=== PATIENT | male | born 1970 | race Caucasian/White ===

== ENCOUNTER 2021-02-02 23:19 | Inpatient (IN) | payer MEDICARE, OTHER, SELFPAY ==
[2021-02-02 23:03] VITALS: BP 157/88; PULSE 95; RESP 24; TEMP 36.9; O2SAT 87; BMI 33.9
--- NOTE | 2021-02-02 23:04 | XR_ITS ---
PROCEDURE INFORMATION: Exam: XR Chest Exam date and time: 02/02/2021 11:04 PM Age: 50 years old Clinical indication: Shortness of breath; Additional info: SOA TECHNIQUE: Imaging protocol: XR of the chest. Views: 1 view. COMPARISON: No relevant prior studies available. FINDINGS: Lungs: Heterogeneous right basilar opacity, suspicious for pneumonia in appropriate clinical setting. Pleural spaces: Bilateral small pleural effusions. Heart/Mediastinum: Unremarkable cardiomediastinal silhouette. Bones/joints: No acute osseous findings. IMPRESSION: Heterogeneous right basilar opacity, suspicious for pneumonia in appropriate clinical setting. Recommend imaging follow-up until complete resolution as malignancy may have a similar appearance.
[2021-02-02 23:09] LABS: ABG Base Excess 2.6 mmol/L (-2.4-2.3); ABG HCO3 29.2 mmhg (22.0-26.0); ABG Oxygen Saturation 96 % (90-100); ABG PH 7.29 mmol/L (7.35-7.45); ABG PO2 84.2 mmhg (80-100); ABG TCO2 31.1 mmhg (23-27); Allen's Test Acceptable; Oxygen 3LPM %; Source Left Radial
[2021-02-02 23:10] LABS: ABG PCO2 62.3 mmhg (35.0-45.0)
--- NOTE | 2021-02-02 23:26 | ECG_ITS ---
APPROVED REPORT Exam: Resting ECG HR:95 bpm ECG Measurements Heart Rate 95 AXES NJ 126 P 64 QRSd 150 QRS 98 QT 412 T 33 QTc 517 Conclusion Normal sinus rhythm Right bundle branch block Abnormal ECG Electronically signed by : Александр Almonte MD 02/03/2021 09:53:19
--- NOTE | 2021-02-02 23:28 | HMH.EDSOB ---
ED Disposition Clinical Impression: Acute exacerbation of chronic obstructive airways disease, Obesity (BMI 30-39.9), RBBB (right bundle branch block with left anterior fascicular block), Tobacco use, Severe sepsis with acute organ dysfunction Community acquired pneumonia Qualifiers: Laterality: right Lung location: lower lobe of lung Qualified Code(s): J18.9 - Pneumonia, unspecified organism Respiratory failure with hypercapnia Qualifiers: Chronicity: acute Qualified Code(s): J96.02 - Acute respiratory failure with hypercapnia Disposition: Admitted As Inpatient Condition on Discharge: Serious Referrals: Provider,Referral, [Referring] - - Critical Care Critical Care Time: No Attestation: On 02/02/21, the high probability of a clinically significant, sudden or life threatening deterioration of the following system(s) required my full and direct attention, intervention and personal management. The time I documented below is in addition to time spent performing reported procedures but includes the following listed in this critical care notation. Medical Decision Making - Medical Records Medical records reviewed: Yes: I reviewed the patient's medical records. - Prashanth Inquiry Pt receiving controlled substance: No Vital Signs: 02/02/21 23:03 Temperature 98.4 F Temperature Source Oral Pulse Rate [Right] 95 H Respiratory Rate 24 Blood Pressure [Right Arm] 157/88 H Blood Pressure Mean [Right Arm] 111 02 Sat by Pulse Oximetry 87 L Oxygen Delivery Method Room Air - Lab Data Lab results reviewed: Yes: I reviewed the patient's lab results. Lab Results 02/02/21 23:05: Specimen Source Left radial, O2 % 3lpm, ABG pH 7.29 L, ABG pCO2 62.3 H, ABG pO2 84.2, ABG HCO3 29.2 H, ABG Total CO2 31.1 H, ABG O2 Saturation 96, ABG Base Excess 2.6 H, Romero Test Acceptable 02/02/21 23:15: WBC 7.5, RBC 4.86, Hgb 15.2, Hct 44.8, MCV 92.0, MCH 31.2, MCHC 33.8, RDW 16.4, Plt Count 253, MPV 7.7, Neut % (Auto) 69.0, Lymph % (Auto) 13.4, [place] % (Auto) 11.2 H, Eos % (Auto) 5.0, Baso % (Auto) 1.4, Neut # (Auto) 5.2, Lymph # (Auto) 1.0, [place] # (Auto) 0.8, Eos # (Auto) 0.4, Baso # (Auto) 0.1, ESR 19 02/02/21 23:15: Sodium 140, Potassium 3.7, Chloride 100, Carbon Dioxide 36 H, Anion Gap 7.7, BUN 12, Creatinine 1.00, Estimated Creat Clear 139, Estimated GFR 78, Est GFR ( Amer) 95, Glucose 119 H, Calcium 8.3 L, Total Bilirubin 0.4, AST 25, ALT 15, Alkaline Phosphatase 85, Troponin I 0.01, C-Reactive Protein 14.0 H, Total Protein 7.1, Albumin 3.8, Globulin 3.3 H, Albumin/Globulin Ratio 1.2, Amylase 75, Procalcitonin 0.094 02/02/21 23:15: Lactate 1.0 02/02/21 23:15: Lipase 63 02/02/21 23:15: SARS-CoV-2 (PCR) Not detected, Influenza A Untype (PCR) Not detected, Influenza Type B (PCR) Not detected Result diagrams: 02/02/21 23:15 02/02/21 23:15 Orders (Tests/Meds): ED MEDICATIONS Generic Name Dose Route Start Last Admin Trade Name Freq PRN Reason Stop Dose Admin Sodium Chloride 1,000 mls @ 999 mls/hr 02/02/21 23:45 02/02/21 23:57 Sod Chlor 0.9% 1000ml Bag IV 02/03/21 00:45 999 mls/hr .Q1H1M ADELINE Administration Discontinued Medications Generic Name Dose Route Start Last Admin Trade Name Freq PRN Reason Stop Dose Admin Iopamidol 70 ml 02/02/21 23:50 02/02/21 23:50 Iopamidol-370 (76%);100ml Bottle IV 02/02/21 23:51 70 ml ONCE ONE Administration Iopamidol 70 ml 02/03/21 00:35 02/03/21 00:37 Iopamidol-370 (76%);100ml Bottle IV 02/03/21 00:36 70 ml ONCE ONE Administration Methylprednisolone Sodium Succinate 125 mg 02/02/21 23:32 02/02/21 23:56 Methylprednisolone Sod Succ 125mg Vial IV 02/02/21 23:33 125 mg ONCE ONE Administration Ondansetron HCl 4 mg 02/02/21 23:32 02/02/21 23:56 Ondansetron 4mg/2ml Vial IV 02/02/21 23:33 4 mg ONCE ONE Administration Sodium Chloride 10 ml 02/02/21 23:50 02/02/21 23:50 Sodium Chloride 0.9% 10ml Syr (Rad Only) IV 02/02/21 23:51 10 ml
--- NOTE | 2021-02-02 23:31 | CT_ITS ---
PROCEDURE INFORMATION: Exam: CT Abdomen And Pelvis With Contrast Exam date and time: 02/02/2021 11:31 PM Age: 50 years old Clinical indication: Nausea and vomiting; Prior surgery; Additional info: N/v TECHNIQUE: Imaging protocol: Computed tomography of the abdomen and pelvis with contrast. Radiation optimization: All CT scans at this facility use at least one of these dose optimization techniques: automated exposure control; mA and/or kV adjustment per patient size (includes targeted exams where dose is matched to clinical indication); or iterative reconstruction. Contrast material: ISOVUE; Contrast volume: 70 ml; Contrast route: IV; COMPARISON: CR XR CHEST PORTABLE 02/02/2021 11:08 PM FINDINGS: Lungs: Incompletely visualize heterogeneous right basilar opacity may represent pneumonia. Liver: No suspicious mass. Gallbladder and bile ducts: Cholecystectomy. Pancreas: No ductal dilation. No peripancreatic inflammatory changes. Spleen: Unremarkable. Adrenal glands: No mass. Kidneys and ureters: No hydronephrosis. Unremarkable renogram. Stomach and bowel: 1.8 cm area of low attenuation in the pancreaticoduodenal groove. Appendix: Unremarkable appendix. Intraperitoneal space: No free air. Vasculature: Atherosclerotic calcifications. Lymph nodes: See Stomach and bowel finding. Urinary bladder: Diffuse thickening of the urinary bladder wall, nonspecific, cystitis is possible. Reproductive: Unremarkable as visualized. Bones/joints: No suspicious osseous lesion. No acute fracture. Scattered degenerative changes. Soft tissues: No suspicious mass. IMPRESSION: 1. Incompletely visualize heterogeneous right basilar opacity may represent pneumonia. Recommend imaging follow-up until complete resolution. 2. 1.8 cm area of low attenuation in the pancreaticoduodenal groove. This is very nonspecific. These may represent small fluid-filled duodenal diverticulum. Differential diagnosis include pancreatitis or duodenitis or necrotic lymph node. Recommend short-term follow-up with MR. 3. Diffuse thickening of the urinary bladder wall, nonspecific, cystitis is possible. Correlate with UA.
[2021-02-02 23:50] VITALS: BP 161/87; PULSE 94; RESP 24; O2SAT 92
[2021-02-02 23:56] LABS: Coronavirus 19, PCR Not Detected (NotDetected); Influenza A, PCR Not Detected (NotDetected); Influenza B, PCR Not Detected (NotDetected)
[2021-02-02 23:58] LABS: Basophils # 0.1 K/mm3 (0-0.2); Basophils % 1.4 % (0.1-2.0); Eosinophils # 0.4 K/mm3 (0.0-0.4); Hematocrit 44.8 % (42.0-52.0); Hemoglobin 15.2 g/dL (14.1-18.0); Lymphocytes % 13.4 % (10-50); Mean Corpuscular HGB Conc 33.8 g/dL (31.8-35.4); Mean Corpuscular Hemoglobin 31.2 pg (27.0-31.2); Mean Platelet Volume 7.7 fl (7.4-10.4); Monocytes # 0.8 K/mm3 (0.1-1.0); Monocytes % 11.2 % (1.7-9.3); Neutrophils # 5.2 K/mm3 (1.8-7.8); Platelet Count 253 K/mm3 (142-424); Red Blood Count 4.86 M/mm3 (4.60-6.20); Red Cell Distribution Width 16.4 % (11.5-17.5); White Blood Count 7.5 K/mm3 (4.8-10.8)
[2021-02-03] VITALS (15 sets, daily range): BP systolic 138–173; BP diastolic 64–99; PULSE 82–114; RESP 16–29; TEMP 36.1–37.2; O2SAT 93–98; BMI 35.2
[2021-02-03 00:07] LABS: Lipase 63 U/L (23-300)
[2021-02-03 00:08] LABS: Alanine Aminotransferase 15 U/L (12-78); Albumin Level 3.8 g/dl (3.5-5.0); Albumin/Globulin Ratio 1.2 (1.1-1.8); Alkaline Phosphatase 85 U/L (38-126); Aspartate Amino Transferase 25 U/L (17-59); Bilirubin,Total 0.4 mg/dl (0.2-1.3); Chloride 100 mmol/L (98-107); Globulin 3.3 g/dL (1.3-3.2); Potassium 3.7 mmoL/L (3.5-5.1); Sodium 140 mmol/L (136-145); Total Protein,Serum 7.1 g/dl (6.3-8.2)
[2021-02-03 00:11] LABS: Amylase 75 U/L (30-110); Anion Gap 7.7 mEq/L (5-15); Blood Urea Nitrogen 12 mg/dl (9-20); Calcium 8.3 mg/dl (8.4-10.2); Carbon Dioxide 36 mmol/L (22.0-30.0); Creatinine Clearance Estimated 139 mL/min (50-200); Estimated Glomerular Filt Rate 78 ml/min (>60); GFR (African American) 95 ML/MIN (>60); Glucose 119 mg/dl (74-100)
--- NOTE | 2021-02-03 00:15 | PC.NURSE ---
pt was placed on bipap by respiratory. Pt tolerating bipap well. FiO2 41%.
--- NOTE | 2021-02-03 00:18 | CT_ITS ---
PROCEDURE INFORMATION: Exam: CTA Chest With Contrast Exam date and time: 02/03/2021 12:18 AM Age: 50 years old Clinical indication: Shortness of breath; Additional info: SOA, dyspnea TECHNIQUE: Imaging protocol: Computed tomographic angiography of the chest with contrast. 3D rendering (Not supervised by radiologist): MIP and/or 3D reconstructed images were created by the technologist. Radiation optimization: All CT scans at this facility use at least one of these dose optimization techniques: automated exposure control; mA and/or kV adjustment per patient size (includes targeted exams where dose is matched to clinical indication); or iterative reconstruction. Contrast material: 70; Contrast volume: 70 ml; Contrast route: INTRAVENOUS (IV); COMPARISON: CR XR CHEST PORTABLE 02/02/2021 11:08 PM FINDINGS: Pulmonary arteries: The study is technically limited secondary to respiratory motion artifact and/or suboptimal timing of the bolus without definite evidence of major pulmonary embolism. Aorta: No thoracic aortic aneurysm. Lungs: Heterogeneous right basilar opacity in the right lower lobe and right middle lobe, may represent pneumonia in appropriate clinical setting. Evaluation of the lung parenchyma is limited due to motion artifact. Multiple scattered nodular opacities most prominent in the right upper lobe, nonspecific, but probably infectious or inflammatory. Few calcified pulmonary granulomas. Pleural spaces: No pleural effusion. Heart: No pericardial effusion. Lymph nodes: Mild to moderate mediastinal lymphadenopathy. This is indeterminate. Bones/joints: No acute fracture. Soft tissues: At least 2 measuring up to 3.0 cm skin based lesion in the posterior left chest. Other findings: Please refer to separate CT abdomen pelvis report for additional findings. IMPRESSION: 1. Limited study without evidence of major pulmonary embolism. 2. Heterogeneous right basilar opacity in the right lower lobe and right middle lobe, may represent pneumonia in appropriate clinical setting. Recommend imaging follow-up until complete resolution. 3. Multiple scattered nodular opacities most prominent in the right upper lobe, nonspecific, but probably infectious or inflammatory. Recommend imaging follow-up until complete resolution. 4. Mild to moderate mediastinal lymphadenopathy. This is indeterminate. 5. At least 2 measuring up to 3.0 cm skin based lesion in the posterior left chest, recommend clinical correlation.
[2021-02-03 00:23] LABS: Troponin I 0.01 ng/ml (0.00-0.034)
[2021-02-03 00:27] LABS: Procalcitonin 0.094 ng/mL (0.0-2.0)
[2021-02-03 00:36] LABS: Erythrocyte Sedimentation Rate 19 mm/hr (0-20)
--- NOTE | 2021-02-03 02:15 | PC.NURSE ---
paged Dr. Lora.
[2021-02-03 02:36] LABS: Troponin I 0.01 ng/ml (0.00-0.034)
--- NOTE | 2021-02-03 03:11 | PC.NURSE ---
patient up to floor via stretcher @ this time .
[2021-02-03 05:43] LABS: Basophils # 0.1 K/mm3 (0-0.2); Basophils % 1.2 % (0.1-2.0); Eosinophils # 0.1 K/mm3 (0.0-0.4); Eosinophils % 0.9 % (0.1-12.0); Hematocrit 45.8 % (42.0-52.0); Hemoglobin 15.5 g/dL (14.1-18.0); Lymphocytes # 0.7 K/mm3 (0.7-4.5); Lymphocytes % 7.5 % (10-50); Mean Corpuscular HGB Conc 33.9 g/dL (31.8-35.4); Mean Corpuscular Volume 91.5 fl (80-94); Mean Platelet Volume 7.5 fl (7.4-10.4); Monocytes # 0.3 K/mm3 (0.1-1.0); Monocytes % 3.1 % (1.7-9.3); Neutrophils # 7.6 K/mm3 (1.8-7.8); Neutrophils % 87.3 % (37.0-80.0); Platelet Count 246 K/mm3 (142-424); Red Blood Count 5.01 M/mm3 (4.60-6.20); Red Cell Distribution Width 16.3 % (11.5-17.5); White Blood Count 8.7 K/mm3 (4.8-10.8)
[2021-02-03 05:50] LABS: MANUAL DIFFERENTIAL MANUAL DIFFERENTIAL (MANUAL DIFF)
[2021-02-03 06:01] LABS: Anion Gap 8.9 mEq/L (5-15); Blood Urea Nitrogen 10 mg/dl (9-20); Calcium 8.3 mg/dl (8.4-10.2); Carbon Dioxide 35 mmol/L (22.0-30.0); Chloride 102 mmol/L (98-107); Chol/HDL Ratio 3.4 (1-3.5); Cholesterol 125 mg/dl (140-200); Creatinine Clearance Estimated 160 mL/min (50-200); Estimated Glomerular Filt Rate 89 ml/min (>60); GFR (African American) 107 ML/MIN (>60); Glucose 151 mg/dl (74-100); HDL Cholesterol 37 mg/dl (40-60); Magnesium 1.5 mg/dl (1.6-2.3); Potassium 4.9 mmoL/L (3.5-5.1); Sodium 141 mmol/L (136-145); Triglycerides 111 mg/dl (30-150); VLDL Cholesterol 22 mg/dL (0-40)
[2021-02-03 06:07] LABS: Troponin I 0.01 ng/ml (0.00-0.034)
[2021-02-03 06:12] LABS: Direct LDL Cholesterol 68.19 mg/dL (100-129); Eosinophils % 1 % (0-3); Lymphocytes % 13 % (10-50); Neutrophils % 85 % (42-76); Platelet Estimate Normal; RBC Morphology Normal; Total Cells Counted 100
--- NOTE | 2021-02-03 07:00 | XR_ITS ---
PROCEDURE INFORMATION: Exam: XR Chest Exam date and time: 02/03/2021 7:00 AM Age: 50 years old Clinical indication: Shortness of breath; Additional info: SOB TECHNIQUE: Imaging protocol: XR of the chest. Views: 1 view. COMPARISON: CR XR CHEST PORTABLE 02/02/2021 11:08 PM FINDINGS: Limitations: Radiographic technique - mild. Tubes, catheters and devices: Leads overlying chest. Lungs: Mild patchy opacities lung bases. Pleural spaces: Small RIGHT pleural effusion. No pneumothorax. Heart/Mediastinum: Mild cardiomegaly. Bones/joints: No displaced fracture. Soft tissues: Unremarkable. IMPRESSION: Probable bibasilar pneumonia. Followup to resolution to exclude underlying pathology.
--- NOTE | 2021-02-03 07:05 | PC.NURSE ---
Dr. Spicer s/w Dr. Lora.
--- NOTE | 2021-02-03 07:26 | HMH.PHAVTE ---
[facility] Pharmacy VTE Monitoring - Patient Demographics Admission date: 02/03/21 Report Date: 02/03/21 Time: 07:26 Allergies/Adverse Reactions: Patient Allergies No Known Allergies Allergy (Verified 02/02/21 23:04) Height: 1.83 m Weight: 118.1 kg Patient Problems: Current Active Problems Acute exacerbation of chronic obstructive airways disease (Acute) Community acquired pneumonia (Acute) Obesity (BMI 30-39.9) (Acute) RBBB (right bundle branch block with left anterior fascicular block) (Acute) Tobacco use (Acute) Respiratory failure with hypercapnia (Acute) Severe sepsis with acute organ dysfunction (Acute) - VTE Risk Labs: VTE Related Lab Results Hgb 15.5 g/dL (14.1-18.0) 02/03/21 05:30 Hct 45.8 % (42.0-52.0) 02/03/21 05:30 Plt Count 246 K/mm3 (142-424) 02/03/21 05:30 BUN 10 mg/dl (9-20) 02/03/21 05:30 Creatinine 0.90 mg/dl (0.66-1.25) 02/03/21 05:30 Estimated Creat Clear 160 mL/min (50-200) 02/03/21 05:30 Clinical Trial Participant: No - Prophylaxis VTE Prophylaxis Ordered?: Yes Types of VTE Prophylaxis: TEDS Knee High
--- NOTE | 2021-02-03 08:53 | HMH.ACPN2 ---
Internal Medicine - PN: Subj *Date: 02/03/21 *Time: 08:53 Interval history: 50-year-old white male with pneumonia admitted through the emergency room. Has been a patient in the past with Dr. Moreno'harjit but has not been seen by their office since 2012. He smokes 3 packs of cigarettes per day. He states that his respiratory status has been declining over the past several months. He thinks he may have some heart issues as well but he left Dr. Moreno at the time they were starting evaluation of that. He states he does have some chest pains. Obviously he is short of breath now and coughing. He was acidotic on admission. Exam Vital signs and Labs for Last 24 Hours: Temp Pulse Resp BP Pulse Ox 99.0 F 95 H 22 150/76 H 94 L 02/03/21 08:00 02/03/21 08:00 02/03/21 08:00 02/03/21 08:00 02/03/21 08:00 Laboratory Results - last 24 hr 02/02/21 23:05: Specimen Source Left radial, O2 % 3lpm, ABG pH 7.29 L, ABG pCO2 62.3 H, ABG pO2 84.2, ABG HCO3 29.2 H, ABG Total CO2 31.1 H, ABG O2 Saturation 96, ABG Base Excess 2.6 H, Romero Test Acceptable 02/02/21 23:15: WBC 7.5, RBC 4.86, Hgb 15.2, Hct 44.8, MCV 92.0, MCH 31.2, MCHC 33.8, RDW 16.4, Plt Count 253, MPV 7.7, Neut % (Auto) 69.0, Lymph % (Auto) 13.4, [place] % (Auto) 11.2 H, Eos % (Auto) 5.0, Baso % (Auto) 1.4, Neut # (Auto) 5.2, Lymph # (Auto) 1.0, [place] # (Auto) 0.8, Eos # (Auto) 0.4, Baso # (Auto) 0.1, ESR 19 02/02/21 23:15: Sodium 140, Potassium 3.7, Chloride 100, Carbon Dioxide 36 H, Anion Gap 7.7, BUN 12, Creatinine 1.00, Estimated Creat Clear 139, Estimated GFR 78, Est GFR ( Amer) 95, Glucose 119 H, Calcium 8.3 L, Total Bilirubin 0.4, AST 25, ALT 15, Alkaline Phosphatase 85, Troponin I 0.01, C-Reactive Protein 14.0 H, Total Protein 7.1, Albumin 3.8, Globulin 3.3 H, Albumin/Globulin Ratio 1.2, Amylase 75, Procalcitonin 0.094 02/02/21 23:15: Lactate 1.0 02/02/21 23:15: Lipase 63 02/02/21 23:15: SARS-CoV-2 (PCR) Not detected, Influenza A Untype (PCR) Not detected, Influenza Type B (PCR) Not detected 02/03/21 01:59: Troponin I 0.01 02/03/21 05:30: Troponin I 0.01 02/03/21 05:30: WBC 8.7, RBC 5.01, Hgb 15.5, Hct 45.8, MCV 91.5, MCH 31.0, MCHC 33.9, RDW 16.3, Plt Count 246, MPV 7.5, Neut % (Auto) 87.3 H, Lymph % (Auto) 7.5 L, [place] % (Auto) 3.1, Eos % (Auto) 0.9, Baso % (Auto) 1.2, Neut # (Auto) 7.6, Lymph # (Auto) 0.7, [place] # (Auto) 0.3, Eos # (Auto) 0.1, Baso # (Auto) 0.1, Total Counted 100, Neutrophils % (Manual) 85 H, Lymphocytes % (Manual) 13, Eosinophils % (Manual) 1, Basophils % (Manual) 1.0, Platelet Estimate Normal, RBC Morphology Normal 02/03/21 05:30: Sodium 141, Potassium 4.9 D, Chloride 102, Carbon Dioxide 35 H, Anion Gap 8.9, BUN 10, Creatinine 0.90, Estimated Creat Clear 160, Estimated GFR 89, Est GFR ( Amer) 107, Glucose 151 H D, Calcium 8.3 L, Magnesium 1.5 L, Triglycerides 111, Cholesterol 125 L, LDL Cholesterol Direct 68.19 L, VLDL Cholesterol 22, HDL Cholesterol 37 L, Cholesterol/HDL Ratio 3.4 I & O for Last 24 hours: Intake & Output 11/02/01/21 02/02/21 02/03/21 11:59 11:59 11:59 11:59 Weight 260 lb 5.855 oz - Constitutional no acute distress, mild distress - *Routine HEENT Exam Head: Present: normocephalic Eye: Present: EOMI, PERRL ENT: Present: mucous membranes moist - *Routine Neck Exam Present: supple. Absent: carotid bruit, lymphadenopathy - *Routine Respiratory Exam Present: decreased breath sounds, rales, rhonchi, wheezes. Absent: CTA bilaterally Comments: Findings are more prominent on the right than on the left. - *Routine Abdominal Exam Present: soft, normoactive bowel sounds, obese. Absent: tenderness - *Routine Extremities Exam Present: edema (2+ edema). Absent: cyanosis, clubbing - *Routine Skin Exam Present: warm. Absent: rash - *Routine Neurological Exam Present: alert, oriented X3 Assessment and Plan (1) Acute exacerbation of chronic obstructive airways disease Status: Acute Category: Medical Code(s
--- NOTE | 2021-02-03 09:32 | HMH.HP ---
*Admission Date: 02/03/21 *Chief complaint: Shortness of breath *History of present illness: Mr. Franklin is a 50yo white male with history of anxiety and depression who reports he started smoking at the age of 13 and is currently smoking 3 ppd. He is a poor historian. He reported to Dr. Epps some plans for cardiac workup when he was a patient of Dr. Almonte in 2013 which were not completed. He reports he began to experience some shortness of breath over a year ago at the beginning of COVID but denies having had COVID-19 infection and did not seek medical care at that time. He reports he was taking buspirone for his anxiety and depression as recently as a month ago. He is not able to recall the pharmacy where he was getting the prescription filled, however, he believes a provider from [facility] in [place], [place], had been prescribing the buspar for him since he was a resident at that facility while he was homeless . He has recently moved in with his parents in [place], [place], after losing his apartment in [place] because he was unable to pay his rent. He denies any drug use and reports very infrequent alcohol use. He is unemployed. He presented to the [facility] ER overnight due to increased shortness of breath and chest tightness which had increased over the past 2-3 days. He was diagnosed with pneumonia, started on IV Rocephin and Zithromax, and admitted for further evaluation and treatment. [facility] History I have reviewed the patient's past medical history: Yes (poor historian) Medical History: Reports:: Anxiety, Depression *Have you ever received a pneumonia vaccine?: No *Have you received a flu vaccine this season?: No - *Social History Last grade of school completed: High school graduate Smoking Status: Current every day smoker Tobacco Type: cigarettes # Packs/Day (cigarettes): 3 #Yrs smoked (if former smoker): 37 Alcohol Intake: never Substance Use Type: denies use *Occupational Status:: unemployed Household Members: family *Travel in the last 8 weeks: None Comment: moved back in with his parents recently after losing his apartment due to inability to pay rent Family Hx:: Cancer Review of Systems - Constitutional Denies body ache(s), Denies fever(s) - Eyes Denies change in vision - ENT Denies nasal congestion, Denies sore throat - *Cardiovascular Reports chest pain, Reports shortness of breath, Reports shortness of breath with activity, Denies generalized swelling, Denies leg swelling - *Respiratory Reports chest congestion, Reports cough, Reports shortness of breath, Reports shortness of breath with activity, Reports excessive phlegm production, Reports pain on inspiration, Reports pain with cough - *Gastrointestinal Denies abdominal pain, Denies change in bowel habits, Denies loose stools, Denies nausea, Denies vomiting - *Genitourinary Denies difficulty urinating - *Neurologic Reports weakness, Denies headache(s), Denies seizure-like activity - Psychiatric Reports anxiety, Reports depression - Hematologic/Lymphatic Denies enlarged lymph nodes Meds Home Medications Medication Instructions Recorded Confirmed Type No Known Home Medications 02/03/21 02/03/21 History Allergies Allergy/AdvReac Type Severity Reaction Status Date / Time No Known Allergies Allergy Verified 02/02/21 23:04 Exam Vital signs and Labs for Last 24 Hours: Temp Pulse Resp BP Pulse Ox 99.0 F 95 H 22 150/76 H 94 L 02/03/21 08:00 02/03/21 08:00 02/03/21 08:00 02/03/21 08:00 02/03/21 08:00 Laboratory Results - last 24 hr 02/02/21 23:05: Specimen Source Left radial, O2 % 3lpm, ABG pH 7.29 L, ABG pCO2 62.3 H, ABG pO2 84.2, ABG HCO3 29.2 H, ABG Total CO2 31.1 H, ABG O2 Saturation 96, ABG Base Excess 2.6 H, Romero Test Acceptable 02/02/21 23:15: WBC 7.5, RBC 4.86, Hgb 15.2, Hct 44.8, MCV 92.0, MCH 31.2, MCHC 33.8, RDW 16.4, Plt Count 253, MPV 7.7, Neut % (Auto) 69.0, Lymph % (Auto) 13.4, [place] % (Auto) 11.2 H, Eos %
--- NOTE | 2021-02-03 17:15 | PC.NURSE ---
Patient is NSR to Sinus tach on the monitor. Patient is on 6L NC. Patient is up with standby/assist times 1. Patient Alert and oriented times 4. Echo completed. Bed in lowest position and phone and call light in reach. Will continue to monitor.
[2021-02-04] VITALS (11 sets, daily range): BP systolic 142–198; BP diastolic 70–99; PULSE 74–108; RESP 18–24; TEMP 36.5–36.8; O2SAT 93–96; BMI 34.5
--- NOTE | 2021-02-04 09:06 | HMH.ACPN2 ---
Internal Medicine - PN: Subj *Date: 02/04/21 *Time: 09:07 Interval history: I made it through the night. He is concerned about where he will go at disposition. His parents are elderly and infirm. Exam Vital signs and Labs for Last 24 Hours: Temp Pulse Resp BP Pulse Ox 98.1 F 88 18 142/78 H 93 L 02/04/21 03:42 02/04/21 05:18 02/04/21 03:42 02/04/21 03:42 02/04/21 05:17 I & O for Last 24 hours: Intake & Output 02/01/21 02/02/21 02/03/21 02/04/21 11:59 11:59 11:59 11:59 Intake Total 120 / 120 720 / 720 Output Total 300 / 300 1500 / 1500 Balance -180 / -180 -780 / -780 Weight 260 lb 5.855 oz 255 lb 2.327 oz Microbiology Reports for the Last 24 Hours: Microbiology 02/03/21 09:20 Sputum - Expectorated Sputum Gram Stain - Final 02/03/21 09:20 Sputum - Expectorated Sputum Sputum Culture - Preliminary - Constitutional no acute distress - *Routine HEENT Exam Head: Present: normocephalic Eye: Present: EOMI, PERRL ENT: Present: mucous membranes moist - *Routine Neck Exam Present: supple. Absent: lymphadenopathy - *Routine Respiratory Exam Present: rales, rhonchi - *Routine Abdominal Exam Present: soft, normoactive bowel sounds, obese. Absent: tenderness - *Routine Extremities Exam Absent: cyanosis, clubbing, edema (minimal) - *Routine Skin Exam Present: warm. Absent: rash Comments: large sebaceous cyst of the left upper/mid back on the left - *Routine Neurological Exam Present: alert, oriented X3 Assessment and Plan (1) Acute exacerbation of chronic obstructive airways disease Status: Acute Category: Medical Code(s): J44.1 - Chronic obstructive pulmonary disease with (acute) exacerbation (2) Community acquired pneumonia Status: Acute Qualifiers: Laterality: right Lung location: lower lobe of lung Qualified Code(s): J18.9 - Pneumonia, unspecified organism Category: Medical Code(s): J18.9 - Pneumonia, unspecified organism (3) Obesity (BMI 30-39.9) Status: Acute Category: Medical Code(s): E66.9 - Obesity, unspecified (4) RBBB (right bundle branch block with left anterior fascicular block) Status: Acute Category: Medical Code(s): I45.2 - Bifascicular block (5) Respiratory failure with hypercapnia Status: Acute Qualifiers: Chronicity: acute Qualified Code(s): J96.02 - Acute respiratory failure with hypercapnia Category: Medical Code(s): J96.92 - Respiratory failure, unspecified with hypercapnia (6) Severe sepsis with acute organ dysfunction Status: Acute Category: Medical Code(s): A41.9 - Sepsis, unspecified organism; R65.20 - Severe sepsis without septic shock (7) Tobacco use Status: Acute Category: Social Hx Code(s): Z72.0 - Tobacco use - Assessment and plan all Dx Assessment and Plan for all problems:: continue present regimen. Chest physiotherapy. Case management consult.
[2021-02-04 09:21] LABS: Basophils # 0.1 K/mm3 (0-0.2); Basophils % 1.2 % (0.1-2.0); Eosinophils # 0.1 K/mm3 (0.0-0.4); Eosinophils % 0.8 % (0.1-12.0); Hematocrit 42.8 % (42.0-52.0); Hemoglobin 14.6 g/dL (14.1-18.0); Lymphocytes # 0.8 K/mm3 (0.7-4.5); Lymphocytes % 6.7 % (10-50); Mean Corpuscular HGB Conc 34.1 g/dL (31.8-35.4); Mean Corpuscular Hemoglobin 31.1 pg (27.0-31.2); Mean Corpuscular Volume 91.3 fl (80-94); Mean Platelet Volume 8.4 fl (7.4-10.4); Monocytes # 0.8 K/mm3 (0.1-1.0); Monocytes % 6.4 % (1.7-9.3); Neutrophils # 10.3 K/mm3 (1.8-7.8); Neutrophils % 84.9 % (37.0-80.0); Platelet Count 281 K/mm3 (142-424); Red Blood Count 4.69 M/mm3 (4.60-6.20); Red Cell Distribution Width 16.4 % (11.5-17.5); White Blood Count 12.1 K/mm3 (4.8-10.8)
[2021-02-04 09:25] LABS: Chloride 99 mmol/L (98-107); Potassium 4.3 mmoL/L (3.5-5.1); Sodium 140 mmol/L (136-145)
[2021-02-04 09:28] LABS: Anion Gap 11.3 mEq/L (5-15); Blood Urea Nitrogen 14 mg/dl (9-20); Calcium 8.2 mg/dl (8.4-10.2); Carbon Dioxide 34 mmol/L (22.0-30.0); Creatinine Clearance Estimated 177 mL/min (50-200); Estimated Glomerular Filt Rate 102 ml/min (>60); GFR (African American) 123 ML/MIN (>60); Glucose 180 mg/dl (74-100)
--- NOTE | 2021-02-04 20:18 | PC.NURSE ---
notified MD Epps bone tender about pt's BP trending up over the last several hours and current increased bp's as charted, pt not in pain and stated do take something for blood pressure, but don't know what , stated would look over chart and order from there
[2021-02-05] VITALS (8 sets, daily range): BP systolic 148–183; BP diastolic 75–93; PULSE 77–110; RESP 16–20; TEMP 35.9–37.3; O2SAT 94–97; BMI 34.5
--- NOTE | 2021-02-05 05:20 | PC.NURSE ---
Addendum entered by Margareth Mcqueen RN 02/05/21 06:52: removed IV in left arm, left arm was the affected extremity Original Note: pt c/o pain in right arm with antibiotic going at rate of 25mL/hr, stopped azithromycin and stopped IVF while attempting to start new IV, but pt refused to have new IV started, removed IV in right arm and noted arm swollen, pt has good pulses and cap refill with no discoloration, notified MD Epps, MD Epps stated to place Kpad on affected extremity, when attempted to place Kpad on pt pt refused treatment and stated don't bother, I'm leaving, my mom is coming to get me and I'm going to [facility] in [place] , notified MD Epps that pt is wanting to leave [place]; notified boiler house inspector and is coming to speak with pt
--- NOTE | 2021-02-05 06:25 | PC.NURSE ---
pt's mother notified RN that pt has daily medications in black pouch, staff were unaware that pt had medications with him, went into room and found medications in closet, wrote down list and dosages, will give to MD Epps when rounds so MD can put them in mar, pt stated will wait to leave until talk to doctor , pt allowed powerhouse mechanic apprentice to place kpad on affected extremity, will send pharmacy requisition for tramadol 50mg PO per telephone order from MD Epps, placed home medications in locked training and development manager pt's room
--- NOTE | 2021-02-05 06:49 | PC.NURSE ---
daily home medications from pt's personal bag 1. metoprolol 100mg am 2. Risperidone 3mg PO twice daily 3. amlodipine besylate 10mg am 4. atorvastatin 20mg at bedtime 5. divalproex sodium 500mg twice daily 6. aspirin 81mg chew tab am
--- NOTE | 2021-02-05 06:54 | PC.NURSE ---
after pharmacy req and order went through, went to go ask pt if still wanted pain medication and pt asleep and snoring, will alert day RN that pt has order for one time dose of tramadol if pt needs it when wakes up
--- NOTE | 2021-02-05 13:24 | XR_ITS ---
PROCEDURE INFORMATION: Exam: XR Chest Exam date and time: 02/05/2021 1:24 PM Age: 50 years old Clinical indication: Shortness of breath; Additional info: Pneumonia TECHNIQUE: Imaging protocol: XR of the chest. Views: 2 views. COMPARISON: CR XR CHEST PORTABLE 02/03/2021 6:05 AM FINDINGS: Lungs: Mild basilar airspace disease on the right. Subpulmonic effusion. Pleural spaces: See Lungs finding. Heart/Mediastinum: Unremarkable. No cardiomegaly. Bones/joints: Unremarkable. IMPRESSION: Mild basilar airspace disease on the right. Subpulmonic effusion.
--- NOTE | 2021-02-05 13:27 | HMH.ACPN2 ---
Internal Medicine - PN: Subj *Date: 02/05/21 *Time: 13:27 Interval history: He was already complained about discomfort from his IV when it subsequently infiltrated causing a lot of discomfort in his left arm. He has refused to have the IV restarted up to this point. He also considered signing out AMA but remains hospitalized at [facility]. I spoke to him about the implications of IV antibiotic treatment. I told him that we would reassess his chest x-ray and I need to see his blood work. His Gram stain showed gram-positive cocci in pairs and chains. Cultures have revealed nothing at this point. White blood cell count was elevated yesterday. He is receiving steroids. Exam Vital signs and Labs for Last 24 Hours: Temp Pulse Resp BP Pulse Ox 98.2 F 82 16 174/93 H 94 L 02/05/21 08:00 02/05/21 08:00 02/05/21 08:00 02/05/21 08:00 02/05/21 08:00 I & O for Last 24 hours: Intake & Output 02/03/21 02/04/21 02/05/21 02/06/21 11:59 11:59 11:59 11:59 Intake Total 120 / 120 1080 / 1080 600 / 600 Output Total 300 / 300 1700 / 1700 2200 / 2200 Balance -180 / -180 -620 / -620 -1600 / -1600 Weight 260 lb 5.855 oz 255 lb 2.327 oz 255 lb Microbiology Reports for the Last 24 Hours: Microbiology 02/03/21 09:20 Sputum - Expectorated Sputum Gram Stain - Final 02/03/21 09:20 Sputum - Expectorated Sputum Sputum Culture - Preliminary 02/02/21 23:15 Blood Blood Culture - Preliminary NO GROWTH AFTER 48 HOURS 02/02/21 23:15 Blood Blood Culture - Preliminary NO GROWTH AFTER 48 HOURS - *Routine HEENT Exam Head: Present: normocephalic Eye: Present: EOMI, PERRL ENT: Present: mucous membranes moist - *Routine Neck Exam Present: supple. Absent: JVD, lymphadenopathy - *Routine Respiratory Exam Present: decreased breath sounds, rhonchi (But lungs do sound clearer today.) - *Routine Cardiovascular Exam Present: RRR - *Routine Abdominal Exam Present: soft, normoactive bowel sounds. Absent: tenderness - *Routine Extremities Exam Absent: cyanosis, clubbing, edema - *Routine Skin Exam Present: warm. Absent: rash - *Routine Neurological Exam Present: alert, oriented X3 Assessment and Plan (1) Acute exacerbation of chronic obstructive airways disease Status: Acute Category: Medical Code(s): J44.1 - Chronic obstructive pulmonary disease with (acute) exacerbation (2) Community acquired pneumonia Status: Acute Qualifiers: Laterality: right Lung location: lower lobe of lung Qualified Code(s): J18.9 - Pneumonia, unspecified organism Category: Medical Code(s): J18.9 - Pneumonia, unspecified organism (3) Obesity (BMI 30-39.9) Status: Acute Category: Medical Code(s): E66.9 - Obesity, unspecified (4) RBBB (right bundle branch block with left anterior fascicular block) Status: Acute Category: Medical Code(s): I45.2 - Bifascicular block (5) Respiratory failure with hypercapnia Status: Acute Qualifiers: Chronicity: acute Qualified Code(s): J96.02 - Acute respiratory failure with hypercapnia Category: Medical Code(s): J96.92 - Respiratory failure, unspecified with hypercapnia (6) Severe sepsis with acute organ dysfunction Status: Acute Category: Medical Code(s): A41.9 - Sepsis, unspecified organism; R65.20 - Severe sepsis without septic shock (7) Tobacco use Status: Acute Category: Social Hx Code(s): Z72.0 - Tobacco use - Assessment and plan all Dx Assessment and Plan for all problems:: Chest x-ray. Repeat blood chemistries and CBC. I will start a saline lock. Cefdinir 300 mg p.o. twice daily until I know more from today's studies. Possible discharge tomorrow.
[2021-02-05 13:55] LABS: Basophils # 0.1 K/mm3 (0-0.2); Basophils % 0.4 % (0.1-2.0); Eosinophils # 0.1 K/mm3 (0.0-0.4); Eosinophils % 0.6 % (0.1-12.0); Hematocrit 45.6 % (42.0-52.0); Hemoglobin 15.2 g/dL (14.1-18.0); Lymphocytes # 1.1 K/mm3 (0.7-4.5); Lymphocytes % 7.7 % (10-50); Mean Corpuscular HGB Conc 33.4 g/dL (31.8-35.4); Mean Corpuscular Hemoglobin 30.5 pg (27.0-31.2); Mean Corpuscular Volume 91.4 fl (80-94); Monocytes # 0.7 K/mm3 (0.1-1.0); Monocytes % 4.6 % (1.7-9.3); Neutrophils # 12.5 K/mm3 (1.8-7.8); Neutrophils % 86.8 % (37.0-80.0); Platelet Count 301 K/mm3 (142-424); Red Blood Count 4.99 M/mm3 (4.60-6.20); Red Cell Distribution Width 16.3 % (11.5-17.5); White Blood Count 14.4 K/mm3 (4.8-10.8)
[2021-02-05 13:57] LABS: Chloride 97 mmol/L (98-107); Potassium 3.8 mmoL/L (3.5-5.1); Sodium 139 mmol/L (136-145)
[2021-02-05 14:00] LABS: Blood Urea Nitrogen 16 mg/dl (9-20); Creatinine Clearance Estimated 177 mL/min (50-200); Estimated Glomerular Filt Rate 102 ml/min (>60); GFR (African American) 123 ML/MIN (>60)
[2021-02-05 14:01] LABS: Anion Gap 9.8 mEq/L (5-15); Calcium 8.6 mg/dl (8.4-10.2); Carbon Dioxide 36 mmol/L (22.0-30.0); Glucose 217 mg/dl (74-100)
[2021-02-05 14:02] LABS: MANUAL DIFFERENTIAL MANUAL DIFFERENTIAL (MANUAL DIFF)
[2021-02-05 18:13] LABS: Lymphocytes % 14 % (10-50); Monocytes % 4 % (2-9); Neutrophils % 72 % (42-76); Platelet Estimate Normal; RBC Morphology Normal; Total Cells Counted 100
--- NOTE | 2021-02-05 23:46 | ECG_ITS ---
APPROVED REPORT Exam: Resting ECG HR:75 bpm ECG Measurements Heart Rate 75 AXES TN 144 P 50 QRSd 144 QRS 74 QT 422 T 41 QTc 471 Conclusion Normal sinus rhythm Right bundle branch block Abnormal ECG Electronically signed by : Александр Almonte MD 02/07/2021 12:18:29
[2021-02-06] VITALS (9 sets, daily range): BP systolic 138–157; BP diastolic 80–100; PULSE 70–88; RESP 16–22; TEMP 36.6–37.1; O2SAT 92–97; BMI 34.5
--- NOTE | 2021-02-06 00:03 | PC.NURSE ---
Patient states that he feels heart is about to pop . Upon assessment of patient he is in no distress, vital signs are WNL, EKG was performed and read by the ED physician as No ACUTE changes .
--- NOTE | 2021-02-06 02:48 | PC.NURSE ---
Patient has been guarded and suspicious in behavior. He has rambled off some bizarre phrases and repeated them several times one of those is the world uses me as a cesspool . Patient had asked what the ER doctor had said about his EKG and when told that there was no acute changes, patient became upset with answer and patient states your doctor is illiterate . Patient believes he is dying.
--- NOTE | 2021-02-06 08:50 | HMH.ACPN2 ---
Internal Medicine - PN: Subj *Date: 02/06/21 *Time: 08:50 Interval history: Patient states he continues to wheeze and have a productive cough. He is able to eat without problems. He does feel full this morning after drinking prune juice too quickly. Bowels have moved. Dates he cannot walk but only a few steps due to his shortness of breath. We discussed smoking cessation. He feels that smoking loosens his secretions and he is able to produce them more readily with this. He is not ready for smoking cessation. He normally smokes about 3 packs of cigarettes per day at home. He does not want a patch. Patient states he will need a wheelchair and oxygen upon returning to home. He does have a care management consult. Exam Vital signs and Labs for Last 24 Hours: Temp Pulse Resp BP Pulse Ox 98.2 F 88 22 157/90 H 92 L 02/06/21 08:00 02/06/21 08:00 02/06/21 08:00 02/06/21 08:00 02/06/21 08:00 Laboratory Results - last 24 hr 02/05/21 13:34: WBC 14.4 H, RBC 4.99, Hgb 15.2, Hct 45.6, MCV 91.4, MCH 30.5, MCHC 33.4, RDW 16.3, Plt Count 301, MPV 8.0, Neut % (Auto) 86.8 H, Lymph % (Auto) 7.7 L, Haskell % (Auto) 4.6, Eos % (Auto) 0.6, Baso % (Auto) 0.4, Neut # (Auto) 12.5 H, Lymph # (Auto) 1.1, Haskell # (Auto) 0.7, Eos # (Auto) 0.1, Baso # (Auto) 0.1, Total Counted 100, Neutrophils % (Manual) 72, Band Neutrophils % 10.0 H, Lymphocytes % (Manual) 14, Monocytes % (Manual) 4, Platelet Estimate Normal, RBC Morphology Normal 02/05/21 13:34: Sodium 139, Potassium 3.8, Chloride 97 L, Carbon Dioxide 36 H, Anion Gap 9.8, BUN 16, Creatinine 0.80, Estimated Creat Clear 177, Estimated GFR 102, Est GFR ( Amer) 123, Glucose 217 H, Calcium 8.6 I & O for Last 24 hours: Intake & Output 02/03/21 02/04/21 02/05/21 02/06/21 11:59 11:59 11:59 11:59 Intake Total 120 / 120 1080 / 1080 600 / 600 720 / 720 Output Total 300 / 300 1700 / 1700 2200 / 2200 2345 / 2345 Balance -180 / -180 -620 / -620 -1600 / -1600 -1625 / -1625 Weight 260 lb 5.855 oz 255 lb 2.327 oz 255 lb 255 lb Microbiology Reports for the Last 24 Hours: Microbiology 02/03/21 09:20 Sputum - Expectorated Sputum Gram Stain - Final 02/03/21 09:20 Sputum - Expectorated Sputum Sputum Culture - Preliminary - Constitutional no acute distress Comments: Sitting on the bedside after eating his breakfast. He appears comfortable. - *Routine Respiratory Exam Present: rhonchi, wheezes, crackles Comments: Very noisy chest with crackles bilaterally rhonchi bilaterally and inspiratory and expiratory wheezing bilaterally. Frequent productive coughing with deep inspiration - *Routine Cardiovascular Exam Present: RRR - *Routine Abdominal Exam Present: soft, normoactive bowel sounds, obese. Absent: tenderness - *Routine Extremities Exam Present: edema (Minimal). Absent: calf tenderness - *Routine Neurological Exam Present: alert, oriented X3 Conversant Assessment and Plan (1) Acute exacerbation of chronic obstructive airways disease Status: Acute Category: Medical Code(s): J44.1 - Chronic obstructive pulmonary disease with (acute) exacerbation (2) Community acquired pneumonia Status: Acute Qualifiers: Laterality: right Lung location: lower lobe of lung Qualified Code(s): J18.9 - Pneumonia, unspecified organism Category: Medical Code(s): J18.9 - Pneumonia, unspecified organism (3) Obesity (BMI 30-39.9) Status: Acute Category: Medical Code(s): E66.9 - Obesity, unspecified (4) RBBB (right bundle branch block with left anterior fascicular block) Status: Acute Category: Medical Code(s): I45.2 - Bifascicular block (5) Respiratory failure with hypercapnia Status: Acute Qualifiers: Chronicity: acute Qualified Code(s): J96.02 - Acute respiratory failure with hypercapnia Category: Medical Code(s): J96.92 - Respiratory failure, unspecified with hypercapnia (6) Severe sepsis with acute organ dysfunctio
--- NOTE | 2021-02-06 09:32 | SW/DCPLANNER ---
Addendum entered by Bailey Roberts 02/07/21 10:28: The plan is for this patient to discharge home today. Patient does not meet requirements to have home O2 but Dr Epps has ordered a nebulizer machine for this patient. [facility] has stated they have everything they need for the order. Patient has stated that he will stop by [facility] to roll picker nebulizer machine. Original Note: I spoke with this patient this AM regarding discharge plans. Patient stated that his plan is to return home with his parents once medically stable for discharge. Patient stated that he does have a new O2 requirement and may possible need O2 at time of discharge. I will follow up with O2 sats. Patient expressed an interest for a wheel chair at discharge then stated that he has an electric wheelchair that his friend will take him to roll picker in [place]. I will continue to follow up with this patient until medically stable for discharge.
--- NOTE | 2021-02-06 13:13 | HMH.PULMCON ---
*Admission Date: 02/03/21 *Reason for consult:: Acute hypoxic respiratory failure *History of present illness: Mr. Franklin is a 50-year-old male current smoker greater than [id number] smoking history, carries a diagnosis of COPD, not using any inhalers at baseline presented hospital with worsening respiratory distress and wheezing cough and productive phlegm for the last 3 days not improving on admission patient found to be in respiratory distress and admitted for further management. [facility] History Medical History: Reports:: Anxiety, Depression *Have you ever received a pneumonia vaccine?: No *Have you received a flu vaccine this season?: No - *Social History Last grade of school completed: High school graduate Smoking Status: Current every day smoker Tobacco Type: cigarettes # Packs/Day (cigarettes): 3 #Yrs smoked (if former smoker): 37 Alcohol Intake: never Substance Use Type: denies use *Occupational Status:: unemployed Household Members: family *Travel in the last 8 weeks: None - Psychiatric History Pschychiatric History:: Reports:: Anxiety, Depression Family Hx:: Cancer ROS - Cons Reports anorexia, Reports body ache(s) - ENT Denies bleeding gums - Card Reports shortness of breath, Reports shortness of breath with activity - Resp Respiratory: Reports cough, Reports dyspnea, Reports dyspnea on exertion, Reports excessive phlegm production, Denies pain on inspiration, Denies pain with cough, Reports cough with sputum production, Denies pain with breathing - GI Gastrointestingal: Denies: abdominal pain - Psych Denies thoughts of hurting/killing others, Denies thoughts of hurting/killing yourself Meds Home Medications Medication Instructions Recorded Confirmed Type Amlodipine Besylate [Amlodipine 10 mg PO DAILY 02/05/21 02/05/21 History 10mg Tab] Aspirin [Aspirin 81mg chewable 81 mg PO DAILY 02/05/21 02/05/21 History tab] Atorvastatin Calcium [Lipitor 20mg 20 mg PO HS 02/05/21 02/05/21 History Tab] Buspirone HCl [Buspirone 7.5mg 7.5 mg PO QID 02/05/21 02/05/21 History tablets] Chlorthalidone [Chlorthalidone 12.5 mg PO DAILY 02/05/21 02/05/21 History 25mg tablet] Divalproex Sodium [Depakote] 500 mg PO BID 02/05/21 02/05/21 History Metoprolol Tartrate [Lopressor 50 mg PO BID 02/05/21 02/05/21 History 50mg tablet] Omeprazole [Omeprazole 20mg 20 mg PO DAILY 02/05/21 02/05/21 History Capsule] risperiDONE [Risperidone] 3 mg PO BID 02/05/21 02/05/21 History Allergies Allergy/AdvReac Type Severity Reaction Status Date / Time No Known Allergies Allergy Verified 02/02/21 23:04 Exam - Constitutional Constitutional:: Present: no acute distress, comfortable - HENMT Exam HENMT: Present: normocephalic, atraumatic - Eye Exam Eyes:: Present: normal appearance both eyes and related structures - Neck Exam Neck:: Present: normal visual inspection - Respiratory Exam Respiratory:: Present: able to speak in complete sentences, no respiratory distress, wheezing - Cardiovascular Exam Cardiac:: Present: S1, S2 - GI Exam GI:: Present: soft - Skin Exam Skin: Present: warm, no rash - Neurological Exam Neurological: Present: alert, awake, normal cognition - Extremities Exam Extremities: Present: no cyanosis, no clubbing, edema Internal Medicine - CN: Reslt - Labs CBC & Chem 7: 02/05/21 13:34 02/05/21 13:34 Labs: Short CBC 02/05/21 Range/Units 13:34 WBC 14.4 H (4.8-10.8) K/mm3 Hgb 15.2 (14.1-18.0) g/dL Hct 45.6 (42.0-52.0) % Plt Count 301 (142-424) K/mm3 BMP 02/05/21 13:34 Sodium 139 Potassium 3.8 Chloride 97 L Carbon Dioxide 36 H BUN 16 Creatinine 0.80 Glucose 217 H Calcium 8.6 - ABG Interpretation ABG results: 02/02/21 23:05 ABG pH 7.29 L ABG pCO2 62.3 H ABG pO2 84.2 ABG HCO3 29.2 H ABG Total CO2 31.1 H ABG O2 Saturation 96 ABG Base Excess 2.6 H Assessment
--- NOTE | 2021-02-06 16:41 | PC.NURSE ---
Patient is NSR on the monitor and on 2L NC. Patient is up with standby assist. Alert and oriented times 4. Plan of care, keep a few more days for treatment, pulmonology following patient's care. Bed in lowest position and phone and call light in reach.
[2021-02-07] VITALS (7 sets, daily range): BP systolic 124–162; BP diastolic 77–112; PULSE 60–91; RESP 20–22; TEMP 36.3–36.7; O2SAT 90–97; BMI 34.5
--- NOTE | 2021-02-07 09:05 | HMH.ACPN2 ---
Internal Medicine - PN: Subj *Date: 02/07/21 *Time: 09:05 Interval history: Patient feels he is doing a little bit better today. He states he slept well last night. He reports that since being on the street is exhausted and sleeps most of the time. He is eating without difficulty. He continues with a periodic productive cough. He remains on oxygen at 1 L/min. Exam Vital signs and Labs for Last 24 Hours: Temp Pulse Resp BP Pulse Ox 97.4 F L 85 20 162/112 H 95 02/07/21 04:00 02/07/21 06:10 02/07/21 04:00 02/07/21 04:00 02/07/21 06:10 I & O for Last 24 hours: Intake & Output 02/04/21 02/05/21 02/06/21 02/07/21 11:59 11:59 11:59 11:59 Intake Total 1080 / 1080 600 / 600 720 / 720 360 / 360 Output Total 1700 / 1700 2200 / 2200 2645 / 2645 400 / 400 Balance -620 / -620 -1600 / -1600 -1925 / -1925 -40 / -40 Weight 255 lb 2.327 oz 255 lb 255 lb 254 lb 15.892 oz Microbiology Reports for the Last 24 Hours: Microbiology 02/03/21 09:20 Sputum - Expectorated Sputum Gram Stain - Final 02/03/21 09:20 Sputum - Expectorated Sputum Sputum Culture - Preliminary - Constitutional no acute distress Comments: Awakened for assessment. - *Routine Respiratory Exam Present: rhonchi (Scattered rhonchi throughout but less noisy), wheezes (Less wheezing today.) - *Routine Cardiovascular Exam Present: RRR - *Routine Abdominal Exam Present: soft, normoactive bowel sounds. Absent: tenderness - *Routine Extremities Exam Absent: edema, calf tenderness - *Routine Neurological Exam Present: alert, oriented X3 Assessment and Plan (1) Acute exacerbation of chronic obstructive airways disease Status: Acute Category: Medical Code(s): J44.1 - Chronic obstructive pulmonary disease with (acute) exacerbation (2) Community acquired pneumonia Status: Acute Qualifiers: Laterality: right Lung location: lower lobe of lung Qualified Code(s): J18.9 - Pneumonia, unspecified organism Category: Medical Code(s): J18.9 - Pneumonia, unspecified organism (3) Obesity (BMI 30-39.9) Status: Acute Category: Medical Code(s): E66.9 - Obesity, unspecified (4) RBBB (right bundle branch block with left anterior fascicular block) Status: Acute Category: Medical Code(s): I45.2 - Bifascicular block (5) Respiratory failure with hypercapnia Status: Acute Qualifiers: Chronicity: acute Qualified Code(s): J96.02 - Acute respiratory failure with hypercapnia Category: Medical Code(s): J96.92 - Respiratory failure, unspecified with hypercapnia (6) Severe sepsis with acute organ dysfunction Status: Acute Category: Medical Code(s): A41.9 - Sepsis, unspecified organism; R65.20 - Severe sepsis without septic shock (7) Tobacco use Status: Acute Category: Social Hx Code(s): Z72.0 - Tobacco use - Assessment and plan all Dx Assessment and Plan for all problems:: Patient is ready for discharge today. Will most likely need home oxygen.
--- NOTE | 2021-02-07 09:22 | HMH.PULMPN ---
Internal Medicine - PN: Subj *Date: 02/07/21 *Time: 11:02 Interval history: No acute respiratory events overnight. Patient continued to improve, weaned to room air. Denies any new complaints. Exam - Constitutional Constitutional:: Present: no acute distress, comfortable - HENMT Exam HENMT: Present: normocephalic, atraumatic - Eye Exam Eyes:: Present: normal appearance both eyes and related structures - Neck Exam Neck:: Present: normal visual inspection - Respiratory Exam Respiratory:: Present: lungs clear, normal respiratory effort. Absent: respiratory distress, accessory muscle use - Cardiovascular Exam Cardiac:: Present: S1, S2 - GI Exam GI:: Present: soft - Skin Exam Skin: Present: warm, no rash - Neurological Exam Neurological: Present: alert, awake, normal cognition - Extremities Exam Extremities: Present: no cyanosis, no clubbing, no edema Assessment and Plan (1) Acute exacerbation of chronic obstructive airways disease Status: Acute Category: Medical Code(s): J44.1 - Chronic obstructive pulmonary disease with (acute) exacerbation (2) Community acquired pneumonia Status: Acute Qualifiers: Laterality: right Lung location: lower lobe of lung Qualified Code(s): J18.9 - Pneumonia, unspecified organism Category: Medical Code(s): J18.9 - Pneumonia, unspecified organism (3) Obesity (BMI 30-39.9) Status: Acute Category: Medical Code(s): E66.9 - Obesity, unspecified (4) RBBB (right bundle branch block with left anterior fascicular block) Status: Acute Category: Medical Code(s): I45.2 - Bifascicular block (5) Respiratory failure with hypercapnia Status: Acute Qualifiers: Chronicity: acute Qualified Code(s): J96.02 - Acute respiratory failure with hypercapnia Category: Medical Code(s): J96.92 - Respiratory failure, unspecified with hypercapnia (6) Severe sepsis with acute organ dysfunction Status: Acute Category: Medical Code(s): A41.9 - Sepsis, unspecified organism; R65.20 - Severe sepsis without septic shock (7) Tobacco use Status: Acute Category: Social Hx Code(s): Z72.0 - Tobacco use - Assessment and plan all Dx Assessment and Plan for all problems:: #Acute hypoxic respiratory failure: #Community-acquired pneumonia 50-year-old male current smoker greater than [id number] smoking history. Not using any inhalers at baseline. Present with worsening respiratory distress. CTA performed, no evidence of pulmonary embolism, significant motion artifact, showed bilateral tree-in-bud opacities along with prominent right lower lobe along with minimal left lower lobe bronchiectasis noted. Multiple nodular opacities also noted mostly in the right upper lobe. COVID-19 and flu PCR negative. Mild leukocytosis. Afebrile. Patient was initiated on cefdinir on admission along with nebulization therapy. No prior PFTs or imaging available for review. Patient respiratory status continued to improve, eventually weaned to room air this morning. He was planned to be discharged today. Etiology of this patient's respiratory likely combination of COPD exacerbation/pneumonia. Plan: -Patient weaned to 1 L nasal cannula with saturations maintained at 93% and above. We will continue to wean as tolerated. -Continue DuoNebs every 6 hours scheduled, patient can be discharged on LABA LAMA inhaler therapy. -Continue cefdinir oral to complete a total of 5-day course. Sputum for few gram-positive cocci in pairs and chains. Blood culture no growth 48 hours. -Prednisone 40 mg dailyx5 days. Patient receiving prednisone 10 mg currently #Thank you for involving pulmonary in this patient care. We will follow the patient in pulmonary clinic in 6 weeks with a full PFT and 6-minute walk testing.
--- NOTE | 2021-02-07 11:26 | PC.NURSE ---
Patient ready for discharge to home
--- NOTE | 2021-02-11 10:32 | HMH.DCSUM ---
General - General Admission date:: 02/03/21 Discharge date: 02/07/21 HPI HPI: Mr. Franklin is a 50yo white male with history of anxiety and depression who reports he started smoking at the age of 13 and is currently smoking 3 ppd. He is a poor historian. He reported to Dr. Epps some plans for cardiac workup when he was a patient of Dr. Almonte in 2013 which were not completed. He reports he began to experience some shortness of breath over a year ago at the beginning of COVID but denies having had COVID-19 infection and did not seek medical care at that time. He reports he was taking buspirone for his anxiety and depression as recently as a month ago. He is not able to recall the pharmacy where he was getting the prescription filled, however, he believes a provider from [facility] in [place], [place], had been prescribing the buspar for him since he was a resident at that facility while he was homeless . He has recently moved in with his parents in [place], [place], after losing his apartment in [place] because he was unable to pay his rent. He denies any drug use and reports very infrequent alcohol use. He is unemployed. He presented to the [facility] ER overnight due to increased shortness of breath and chest tightness which had increased over the past 2-3 days. He was diagnosed with pneumonia, started on IV Rocephin and Zithromax, and admitted for further evaluation and treatment. Hospital Course Hospital Course: Patient had a chest x-ray showing heterogenous right basilar opacity suspicious for pneumonia. He had a chest CTA which was limited but did not show evidence of major pulmonary embolism. It did show the right basilar opacity in the right lower lobe and right middle lobe possibly representing a pneumonia. There were multiple scattered nodular opacities in the right upper lobe and mild to moderate mediastinal lymphadenopathy. He also had a CT of the abdomen and pelvis which showed an area of low-attenuation in the pancreaticoduodenal groove and diffuse thickening of the urinary bladder wall. He was admitted and started on antibiotics. An echo was ordered. It showed an EF of 60 to 65%. He was started on chest physiotherapy and case management was consulted about disposition as he had been homeless and then moved in with his elderly parents. He had a repeat chest x-ray on 02/05/2021 which showed mild basilar airspace disease on the right and a subpulmonic effusion. Dr. Epps discussed the chest x-ray with Dr. Parada as he was concerned about a round appearing demarcation in the right base. Dr. Parada did not feel this was a developing abscess. The patient's IV infiltrated which caused a lot of discomfort in his left arm. He refused to have an IV restarted and considered signing out AMA but remained hospitalized. His blood culture showed no growth. He was started on oral cefdinir. He continued to wheeze and have a productive cough. He was only able to walk a few steps due to shortness of breath. It was felt he would need oxygen upon discharge and care management was consulted for this as well. He planned to go to his parents home when discharged. He was seen in consultation by pulmonology who recommended duo nebs and continuation of the oral cefdinir. He also recommended discharge on a LABA LAMA inhaler therapy. He initiated him on prednisone 40 mg a day. By 02/07/2021, he was feeling a little bit better and remained on 1 L of nasal oxygen. He was stable for discharge and will need to follow-up with pulmonology in 6 weeks as well as with Dr. Epps. Of note, his sputum grew yeast. Objective Vital signs: Temp Pulse Resp BP Pulse Ox 97.5 F L 91 H 22 124/77 90 L 02/07/21 08:00 02/07/21 08:00 02/07/21 08:00 02/07/21 08:00 02/07/21 10:15 Narrative: - Constitutional no acute distress, disheveled - *Routine HEENT Exam Head: Present: normocephalic, atraumatic Eye: Present: PERRL, normal accommodation
== END 2021-02-07 11:15 | disposition home or self-care (01) | DRG 871 ==
LOC: ER 02-03 02:20 → 2ND 02-03 02:37
PROVIDERS: Admitting Provider Internal Medicine Adolescent Medicine; Emergency Provider Emergency Medicine; Visit Provider Family Medicine
DX: A41.9 Sepsis, unspecified organism (principal); J18.9 Pneumonia, unspecified organism; J96.02 Acute respiratory failure with hypercapnia; J44.0 Chronic obstructive pulmonary disease with (acute) lower respiratory infection; Z20.822 Contact with and (suspected) exposure to COVID-19; J44.1 Chronic obstructive pulmonary disease with (acute) exacerbation; R65.20 Severe sepsis without septic shock; E66.9 Obesity, unspecified; Z68.34 Body mass index [BMI] 34.0-34.9, adult; F17.210 Nicotine dependence, cigarettes, uncomplicated; F41.9 Anxiety disorder, unspecified; F32.A Depression, unspecified; Z71.6 Tobacco abuse counseling
CPT/HCPCS: 36415; 71045; 71046; 71275; 74177; 80048; 80053; 80061; 82150; 82803; 83605; 83690; 83735; 84145; 84484; 85007; 85025; 85651; 86140; 87040; 87070; 87205; 93005; 93306; 94640; 94761; 96365; 96375; 99284; C9803; J0456; J2405; Q9967; U0003; U0005

== ENCOUNTER 2021-02-23 03:54 | Emergency (ER) | payer MEDICARE, OTHER, SELFPAY ==
[2021-02-23 03:52] VITALS: BP 170/101; PULSE 86; RESP 22; TEMP 36.7; O2SAT 90; BMI 42.3
--- NOTE | 2021-02-23 03:52 | ECG_ITS ---
APPROVED REPORT Exam: Resting ECG HR:89 bpm ECG Measurements Heart Rate 89 AXES AR 132 P 56 QRSd 146 QRS 111 QT 404 T 35 QTc 491 Conclusion Normal sinus rhythm Right bundle branch block Abnormal ECG Electronically signed by : Александр Almonte MD 02/25/2021 08:47:48
--- NOTE | 2021-02-23 04:06 | XR_ITS ---
PROCEDURE INFORMATION: Exam: XR Chest Exam date and time: 02/23/2021 4:06 AM Age: 50 years old Clinical indication: Shortness of breath; Patient HX: SOA. Smoker TECHNIQUE: Imaging protocol: XR of the chest. Views: 2 views. COMPARISON: CR XR CHEST 2V 02/05/2021 2:56 PM FINDINGS: Lungs: Right lung base airspace disease is present. Pleural spaces: Small right-sided pleural effusion is unchanged. Heart/Mediastinum: Unremarkable. No cardiomegaly. Bones/joints: Unremarkable. IMPRESSION: Stable right lung base airspace disease and pleural effusion.
[2021-02-23 04:30] VITALS: BP 156/97; PULSE 85; O2SAT 92
[2021-02-23 04:42] LABS: Basophils # 0.1 K/mm3 (0-0.2); Basophils % 0.5 % (0.1-2.0); Eosinophils # 0.3 K/mm3 (0.0-0.4); Eosinophils % 2.6 % (0.1-12.0); Hemoglobin 16.2 g/dL (14.1-18.0); Lymphocytes % 19.2 % (10-50); Mean Corpuscular HGB Conc 31.8 g/dL (31.8-35.4); Mean Corpuscular Hemoglobin 31.1 pg (27.0-31.2); Mean Corpuscular Volume 97.7 fl (80-94); Mean Platelet Volume 7.3 fl (7.4-10.4); Monocytes # 0.6 K/mm3 (0.1-1.0); Monocytes % 5.8 % (1.7-9.3); Neutrophils # 7.6 K/mm3 (1.8-7.8); Neutrophils % 71.9 % (37.0-80.0); Platelet Count 228 K/mm3 (142-424); Red Blood Count 5.22 M/mm3 (4.60-6.20); Red Cell Distribution Width 16.8 % (11.5-17.5); White Blood Count 10.5 K/mm3 (4.8-10.8)
[2021-02-23 04:45] LABS: Alanine Aminotransferase 26 U/L (12-78); Albumin Level 4.2 g/dl (3.5-5.0); Alkaline Phosphatase 87 U/L (38-126); Aspartate Amino Transferase 30 U/L (17-59); Bilirubin,Direct 0.2 mg/dl (0.0-0.4); Bilirubin,Indirect 0.2 mg/dL (0.0-0.9); Bilirubin,Total 0.4 mg/dl (0.2-1.3); Bilirubin,Unconjugated 0.2 mg/dL (0.0-1.1); Blood Urea Nitrogen 12 mg/dl (9-20); Calcium 8.6 mg/dl (8.4-10.2); Carbon Dioxide 37 mmol/L (22.0-30.0); Chloride 103 mmol/L (98-107); Creatinine Clearance Estimated 81 mL/min (50-200); Estimated Glomerular Filt Rate 78 ml/min (>60); GFR (African American) 95 ML/MIN (>60); Glucose 114 mg/dl (74-100); Sodium 141 mmol/L (136-145); Total Protein,Serum 7.4 g/dl (6.3-8.2)
--- NOTE | 2021-02-23 04:47 | HMH.EDSOB ---
ED Disposition Clinical Impression: Acute exacerbation of chronic obstructive airways disease, RBBB (right bundle branch block with left anterior fascicular block), Tobacco use Disposition: Home, Self-Care Condition on Discharge: Good Instructions: DI for Chronic Obstructive Pulmonary Disease Additional Instructions: see pcp for follow up Prescriptions: predniSONE [Prednisone 20mg Tab] 20 mg PO BID #10 tab Transmission Status: Pending to [facility] Referrals: Александр Almonte MD [Staff Physician] - - Critical Care Critical Care Time: No Attestation: On 02/23/21, the high probability of a clinically significant, sudden or life threatening deterioration of the following system(s) required my full and direct attention, intervention and personal management. The time I documented below is in addition to time spent performing reported procedures but includes the following listed in this critical care notation. Medical Decision Making - Medical Records Medical records reviewed: Yes: I reviewed the patient's medical records. - Prashanth Inquiry Pt receiving controlled substance: No Vital Signs: 02/23/21 03:52 Temperature 98.0 F Temperature Source Oral Pulse Rate [Right Radial] 86 Respiratory Rate 22 Blood Pressure [Right Arm] 170/101 H Blood Pressure Mean [Right Arm] 124 Blood Pressure Source [Right Arm] Automatic Cuff Blood Pressure Position [Right Arm] Sitting 02 Sat by Pulse Oximetry 90 L Oxygen Delivery Method Room Air - Lab Data Lab results reviewed: Yes: I reviewed the patient's lab results. Lab Results 02/23/21 04:29: WBC 10.5, RBC 5.22, Hgb 16.2, Hct 51.0, MCV 97.7 H, MCH 31.1, MCHC 31.8, RDW 16.8, Plt Count 228, MPV 7.3 L, Neut % (Auto) 71.9, Lymph % (Auto) 19.2, Mclennan % (Auto) 5.8, Eos % (Auto) 2.6, Baso % (Auto) 0.5, Neut # (Auto) 7.6, Lymph # (Auto) 2.0, Mclennan # (Auto) 0.6, Eos # (Auto) 0.3, Baso # (Auto) 0.1, ESR 2 02/23/21 04:29: Sodium 141, Potassium 4.0, Chloride 103, Carbon Dioxide 37 H, Anion Gap 5.0, BUN 12, Creatinine 1.00, Estimated Creat Clear 81, Estimated GFR 78, Est GFR ( Amer) 95, Glucose 114 H, Calcium 8.6, Total Bilirubin 0.4, Direct Bilirubin 0.2, Conjugated Bilirubin 0.0, Indirect Bilirubin 0.2, Unconjugated Bilirubin 0.2, AST 30, ALT 26, Alkaline Phosphatase 87, Troponin I 0.01, C-Reactive Protein 3.4, NT-Pro-B Natriuret Pep 93.3, Total Protein 7.4, Albumin 4.2, Procalcitonin 0.045 Result diagrams: 02/23/21 04:29 02/23/21 04:29 Orders (Tests/Meds): ED MEDICATIONS Discontinued Medications Generic Name Dose Route Start Last Admin Trade Name Freq PRN Reason Stop Dose Admin Albuterol/Ipratropium 1 puff 02/23/21 04:55 02/23/21 05:14 Combivent 20mcg/100mcg Respimat Inhaler 02/23/21 04:56 1 puff ONCE ONE Administration Albuterol/Ipratropium 3 ml 02/23/21 05:05 02/23/21 05:14 Ipratropium/Albuterol 3 Ml Neb IH 02/23/21 05:06 3 ml ONCE ONE Administration ORDERS Category Date Time Status Troponin I Q3H Lab 02/23/21 07:15 Ordered Troponin I Q3H Lab 02/23/21 10:15 Ordered - Radiology Data #1 Image(s): Chest Image Reviewed: Yes I have reviewed radiologist's interpretation Preliminary Findings: Abnormal (stable ) - ECG Data Tracing #1 Normal Sinus Rhythm: Yes Ischemic changes: non-specific ST-T wave changes Conduction abnormalities present: RBBB Medical Decision Narrative: has copd and chronic tob use with stable exam and labs - discussed need for follow up and tob cessation Resp/SOB HPI - General Chief Complaint: Shortness of Breath/Dyspnea Stated Complaint: SOA Time Seen by Provider: 02/23/21 04:15 Mode of Arrival: EMS Source of Information: Patient, EMS, Medical Record Limitations: No Limitations Description of Symptoms (Recalled from ER Triage Doc. by RN): Pt reports waking up around 2am with liquid pressure around my heart . Pt says he is unable to lay flat d/t soa. EMS reports pt was very a
[2021-02-23 05:00] VITALS: BP 154/87; PULSE 78; O2SAT 91
[2021-02-23 05:02] LABS: C-Reactive Protein 3.4 mg/L (0-4)
[2021-02-23 05:11] LABS: Erythrocyte Sedimentation Rate 2 mm/hr (0-20)
[2021-02-23 05:15] LABS: NT Pro Brain Natriuretic Pep. 93.3 pg/mL (0-125); Troponin I 0.01 ng/ml (0.00-0.034)
[2021-02-23 05:19] LABS: Procalcitonin 0.045 ng/mL (0.0-2.0)
[2021-02-23 05:30] VITALS: BP 149/88; PULSE 81; O2SAT 90
[2021-02-23 06:12] VITALS: BP 150/91; PULSE 80; RESP 18; TEMP 36.7; O2SAT 92
--- NOTE | 2021-02-23 06:14 | PC.NURSE ---
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 No answer at this time, will attempt again.
--- NOTE | 2021-02-23 07:33 | PC.NURSE ---
got a hold of pt's sister for a ride
== END 2021-02-23 09:21 | disposition home or self-care (01) ==
PROVIDERS: Emergency Provider Emergency Medicine; PCP Internal Medicine Adolescent Medicine
DX: J44.1 Chronic obstructive pulmonary disease with (acute) exacerbation (principal); I45.2 Bifascicular block; F17.210 Nicotine dependence, cigarettes, uncomplicated; F41.8 Other specified anxiety disorders
CPT/HCPCS: 71046; 80048; 80076; 83880; 84145; 84484; 85025; 85651; 86140; 93005; 99283

== ENCOUNTER → 2021-03-29 08:58 | Outpatient (CLI) | payer MEDICARE, MEDICAID, SELFPAY ==
[2021-03-29 14:12] LABS: Basophils # 0.1 K/mm3 (0-0.2); Eosinophils # 0.3 K/mm3 (0.0-0.4); Eosinophils % 2.6 % (0.1-12.0); Hemoglobin 16.7 g/dL (14.1-18.0); Lymphocytes # 1.7 K/mm3 (0.7-4.5); Lymphocytes % 17.1 % (10-50); Mean Corpuscular HGB Conc 32.7 g/dL (31.8-35.4); Mean Corpuscular Hemoglobin 31.5 pg (27.0-31.2); Mean Corpuscular Volume 96.4 fl (80-94); Mean Platelet Volume 8.4 fl (7.4-10.4); Monocytes # 0.6 K/mm3 (0.1-1.0); Monocytes % 6.1 % (1.7-9.3); Neutrophils # 7.1 K/mm3 (1.8-7.8); Neutrophils % 73.3 % (37.0-80.0); Platelet Count 318 K/mm3 (142-424); Red Blood Count 5.29 M/mm3 (4.60-6.20); Red Cell Distribution Width 15.3 % (11.5-17.5); White Blood Count 9.7 K/mm3 (4.8-10.8)
[2021-03-29 14:25] LABS: Alanine Aminotransferase 18 U/L (12-78); Albumin/Globulin Ratio 1.4 (1.1-1.8); Alkaline Phosphatase 95 U/L (38-126); Anion Gap 11.4 mEq/L (5-15); Aspartate Amino Transferase 30 U/L (17-59); Bilirubin,Total 0.4 mg/dl (0.2-1.3); Blood Urea Nitrogen 10 mg/dl (9-20); Calcium 8.8 mg/dl (8.4-10.2); Carbon Dioxide 28 mmol/L (22.0-30.0); Chloride 104 mmol/L (98-107); Estimated Glomerular Filt Rate 89 ml/min (>60); GFR (African American) 107 ML/MIN (>60); Globulin 2.8 g/dL (1.3-3.2); Glucose 100 mg/dl (74-100); Potassium 4.4 mmoL/L (3.5-5.1); Sodium 139 mmol/L (136-145); Total Protein,Serum 6.8 g/dl (6.3-8.2)
[2021-03-29 14:53] LABS: Thyroid Stimulating Hormone 2.43 uIU/mL (0.465-4.68)
[2021-03-29 14:54] LABS: Hemoglobin A1C 5.4 % (4.0-6.0)
== END ==
PROVIDERS: Visit Provider Internal Medicine Adolescent Medicine
DX: R06.00 Dyspnea, unspecified (principal); I10 Essential (primary) hypertension; R53.82 Chronic fatigue, unspecified; Z79.899 Other long term (current) drug therapy
CPT/HCPCS: 36415; 80053; 83036; 84443; 85025

== ENCOUNTER → 2021-04-07 12:37 | Outpatient (CLI) | payer MEDICARE, MEDICAID, SELFPAY ==
--- NOTE | 2021-04-07 12:46 | CA_ITS ---
APPROVED REPORT EXAM: Comprehensive 2D, Doppler, and color-flow Echocardiogram Hygiene Coordinator: Radha Scott CRT Ht: 5 ft 10 in Wt: 270lbs BSA: 2.37 BP: 170/101 mmHg Indications: COPD, Shortness of Breath 2D Dimensions LVOT 2.03 cm (M/F) 1.5-2.5 LA Volume 38.70 mL LA Volume Index 16.30 mL/m2 (M/F) 16-34 M-Mode Dimensions RVDd 3.30 cm (0.9-2.6) LA Diam 4.26 cm (1.9-4.0) LVDd 4.29 cm (3.5-5.7) Ao Diam 4.54 cm (2.0-3.7) LVDs 2.67 cm (3.5-5.7) IVSd 1.94 cm (0.6-1.1) PWd 1.46 cm (0.6-1.1) EF (Teich) 68.20% FS 37.80% EDV (Teich) 82.60 mL TAPSE 1.60 (<1.7) ESV (Teich) 26.30 mL LV Diastology E Decel Time 450.00 (160-240 msec) E/A Ratio 1.01 MED E' 5.70 (< 7 cm/sec) MED A' 11.00 cm/s E'/MED E' Ratio 21.88 (>14) LAT E' 6.10 (<10 cm/sec) LAT A' 8.80 cm/s E/LAT E' Ratio 20.44 (>14) Aortic Valve AO Peak GR. 9.10 mmHg Mitral Valve MV E Max Tamir. 125.00 (40-130 cm/s) MV A Velocity 123.00 (40-130 cm/s) E/A Ratio 1.01 MV Decel. Time 450.00 (160-240 ms) MV PHT 132.00 ms Pulmonary Valve PV Peak Velocity 110.00 (50-150 cm/s) Tricuspid Valve TR P. Velocity 115.00 cm/s RAP Estimate 10.00 mmHg RVSP 15.30 mmHg Left Ventricle Left atrium is mildly enlarged, left ventricle is normal size, mild concentric left ventricular hypertrophy, visually estimated ejection fraction 55% with no obvious regional wall motion abnormality, grade 1 diastolic dysfunction seen with tissue Doppler evidence of raise left atrial pressure. Right Ventricle Right atrium and right ventricle are mildly enlarged with normal contractility. Aortic Valve Aortic valve is minimally thickened and fibrosed, there is no aortic stenosis or aortic insufficiency. Mitral Valve Mitral valve is grossly normal, there is mild mitral regurgitation. Tricuspid Valve Tricuspid valve grossly normal, there is mild tricuspid regurgitation, tricuspid regurgitation jet velocity is inadequate for calculation of the right ventricular systolic pressure. Pulmonic Valve Pulmonic valve is poorly visualized. Great Vessels Aortic root is normal size. Inferior vena cava is mildly dilated with normal inspiratory collapse. Pericardium No significant pericardial effusion noted. Conclusion 1. Biatrial enlargement, normal left ventricular size, mild concentric left ventricular hypertrophy, visually estimated ejection fraction 55% with no regional wall motion abnormality, grade 1 diastolic dysfunction seen with tissue Doppler evidence of raise left atrial pressure. 2. Mildly enlarged right ventricle with normal contractility. 3. Mild mitral and tricuspid regurgitation. 4. No significant pericardial effusion 5. Inferior vena cava is mildly dilated with normal inspiratory collapse. Electronically signed by : Kamron Jarvis MD 04/07/2021 14:40:23
== END ==
PROVIDERS: PCP Internal Medicine Adolescent Medicine; Visit Provider Internal Medicine Adolescent Medicine
DX: R06.09 Other forms of dyspnea (principal)
CPT/HCPCS: 93306

== ENCOUNTER → 2022-12-03 15:00 | Outpatient (CLI) | payer MEDICARE, SELFPAY ==
[2022-12-03 17:07] LABS: Alanine Aminotransferase 19 U/L (12-78); Albumin Level 3.9 g/dl (3.5-5.0); Albumin/Globulin Ratio 1.1 (1.1-1.8); Alkaline Phosphatase 213 U/L (38-126); Anion Gap 13.4 mEq/L (5-15); Aspartate Amino Transferase 37 U/L (17-59); Bilirubin,Total 0.6 mg/dl (0.2-1.3); Blood Urea Nitrogen 18 mg/dl (9-20); Calcium 8.5 mg/dl (8.4-10.2); Carbon Dioxide 30 mmol/L (22.0-30.0); Chloride 101 mmol/L (98-107); Chol/HDL Ratio 5.7 (1-3.5); Cholesterol 218 mg/dl (140-200); Estimated Glomerular Filt Rate 58 ml/min (>60); GFR (African American) 70 ML/MIN (>60); Globulin 3.6 g/dL (1.3-3.2); Glucose 95 mg/dl (74-100); HDL Cholesterol 38 mg/dl (40-60); Potassium 3.4 mmoL/L (3.5-5.1); Sodium 141 mmol/L (136-145); Total Protein,Serum 7.5 g/dl (6.3-8.2); Triglycerides 179 mg/dl (30-150); VLDL Cholesterol 36 mg/dL (0-40)
[2022-12-03 17:12] LABS: Basophils # 0.1 K/mm3 (0-0.2); Basophils % 0.6 % (0.1-2.0); Eosinophils # 0.3 K/mm3 (0.0-0.4); Eosinophils % 2.8 % (0.1-12.0); Hematocrit 55.9 % (42.0-52.0); Hemoglobin 17.5 g/dL (14.1-18.0); Lymphocytes % 10.2 % (10-50); Mean Corpuscular HGB Conc 31.2 g/dL (31.8-35.4); Mean Corpuscular Volume 80.1 fl (80-94); Mean Platelet Volume 8.6 fl (7.4-10.4); Monocytes # 0.6 K/mm3 (0.1-1.0); Monocytes % 6.4 % (1.7-9.3); Neutrophils # 8.1 K/mm3 (1.8-7.8); Platelet Count 323 K/mm3 (142-424); Red Blood Count 6.98 M/mm3 (4.60-6.20); Red Cell Distribution Width 19.1 % (11.5-17.5); White Blood Count 10.1 K/mm3 (4.8-10.8)
[2022-12-03 17:15] LABS: NT Pro Brain Natriuretic Pep. 3220 pg/mL (0-125)
[2022-12-03 17:18] LABS: Direct LDL Cholesterol 133.32 mg/dL (100-129)
[2022-12-03 17:37] LABS: Thyroid Stimulating Hormone 3.75 uIU/mL (0.465-4.68)
== END ==
PROVIDERS: PCP Family Medicine; Visit Provider Family Medicine
DX: R60.9 Edema, unspecified (principal); R06.02 Shortness of breath; E66.9 Obesity, unspecified; Z00.00 Encounter for general adult medical examination without abnormal findings; R53.83 Other fatigue; Z68.33 Body mass index [BMI] 33.0-33.9, adult
CPT/HCPCS: 80053; 80061; 83880; 84443; 85025